=== PATIENT | female | born 2000 | race Caucasian/White ===

== ENCOUNTER 2019-05-14 17:31 | Emergency (ER) | payer SELFPAY ==
[~2019-05-14] VITALS: Ht 175.3 cm; Wt 63.5 kg
--- NOTE | 2019-05-14 17:55 | NUR ---
PT BIBFRIEND. C/O BACK OF HEAD INJ SP FAINTING AT BANK. PT STATES SHE FELL BACK ON HER HEAD. NO WITNESSES WHEN FAINTED. PT STATES BACK OF HER HEAD HURTS, +KO. PT AAOX4, RESPONSIVE, NO NEURO DEFICIT UPON ASSESSMENT. PA AT BEDSIDE FOR EVAL. PT ALSO STATED SHE USUALLY PASSES OUT.
--- NOTE | 2019-05-14 18:20 | NUR ---
URINE COLLECTED AND SENT TO LAB
[2019-05-14 18:30] VITALS: BP 128/84
--- NOTE | 2019-05-14 18:56 | NUR ---
spoke to Radiology for Xray
--- NOTE | 2019-05-14 18:57 | NUR ---
xray at bedside
--- NOTE | 2019-05-14 19:35 | NUR ---
Patient discharged to home in stable condition. Written and verbal after care instructions given. Patient verbalizes understanding of instruction. Pt ambulatory with steady gait. VSS.
== END 2019-05-14 19:35 | disposition home or self-care (01) ==
LOC: ER 17:31
DX: S09.8XXA Other specified injuries of head, initial encounter (principal); R55 Syncope and collapse; R51 Headache; X58.XXXA Exposure to other specified factors, initial encounter; Y93.89 Activity, other specified; Y92.89 Other specified places as the place of occurrence of the external cause; Y99.8 Other external cause status
CPT/HCPCS: 71045-TC; 84703-TC

== ENCOUNTER 2019-09-04 21:07 | Emergency (ER) | payer MEDICAID ==
[~2019-09-04] VITALS: Ht 175.3 cm; Wt 59.0 kg
[2019-09-04] MEDS ORDERED: IV NS 0.9% 1,000 ML BAG IV ONE (22:30)
--- NOTE | 2019-09-04 22:48 | NUR ---
ABD PAIN X 2 DAYS, +FEVER, TOOK IBUPROFEN TODAY. PT AAOX4, VSS. DENIES CP, SOB, DIZZINESS, N/V/D @ THIS TIME. PT SEEN & EVAL'D BY EDELMIRA MUHAMMAD. WILL CONT TO MONITOR.
[2019-09-04 22:49] LABS: BASOPHILS % (AUTO) 0.2 % (0.0-2.0); EOSINOPHILS % (AUTO) 0.1 % (0.0-6.0); HEMATOCRIT 40 % (33-45); HEMOGLOBIN 13.5 g/dL (11.5-14.8); LYMPHOCYTES # (AUTO) 0.7 /CMM (0.8-4.8); LYMPHOCYTES % (AUTO) 7.7 % (20.0-44.0); MEAN CORPUSCULAR HGB CONC 34 g/dl (31.0-36.0); MEAN CORPUSCULAR VOLUME 94 fL (82-100); MONOCYTES # (AUTO) 0.3 /CMM (0.1-1.30); MONOCYTES % (AUTO) 3.9 % (2.0-12.0); NEUTROPHILS # (AUTO) 7.6 /CMM (1.8-8.9); NEUTROPHILS % (AUTO) 88.1 % (43.0-81.0); PLATELET COUNT (AUTO) 206 /CMM (150-450); RED BLOOD CELL COUNT(AUTO) 4.22 MIL/uL (4.0-5.2); WHITE BLOOD COUNT (AUTO) 8.6 K/uL (4.3-11.0)
[2019-09-04 22:51] LABS: APPEARANCE,URINE Cloudy (CLEAR); BILIRUBIN,URINE SMALL (NEGATIVE); BLOOD, URINE Moderate Ery/uL (NEGATIVE); COLOR,URINE Yellow (YELLOW); KETONES,URINE >=160 (NEGATIVE); LEUKOCYTE ESTERASE ,URINE Small (NEGATIVE); NITRITE, URINE Negative (NEGATIVE); PH,URINE 5.5 (5.0-8.0); PROTEIN,URINE 30 mg/dl (NEGATIVE); UGLUCOSE Negative (NEGATIVE)
[2019-09-04 22:58] LABS: CALCIUM, SERUM 9.1 mg/dL (8.5-10.1); CREATININE 0.9 mg/dL (0.6-1.3); POTASSIUM 3.5 mmol/L (3.5-5.1)
[2019-09-04 23:03] LABS: ALBUMIN 4.6 g/dL (3.4-5.0); BILIRUBIN,DIRECT 0.2 mg/dL (0.0-0.2); BILIRUBIN,TOTAL 0.9 mg/dL (0.2-1.0)
[2019-09-04 23:09] LABS: BACTERIA,URINE Few /HPF (None Seen); SQUAMOUS EPITHELIAL CELL,UR Moderate /HPF (None Seen); WBC,URINE 51-80 /HPF (0-3)
[2019-09-05] VITALS: BP 120/65
--- NOTE | 2019-09-05 00:07 | NUR ---
Patient discharged to home in stable condition. Written and verbal after care instructions given. Patient verbalizes understanding of instruction. IV removed. Catheter intact and site benign. Pressure and 4x4 applied to site. No bleeding noted.
== END 2019-09-05 00:08 | disposition home or self-care (01) ==
LOC: ER 21:09
DX: N10 Acute pyelonephritis (principal); B37.3 Candidiasis of vulva and vagina; F41.9 Anxiety disorder, unspecified
CPT/HCPCS: 36415; 74176; 80048; 80076; 81001; 83690; 84703; 85025; 87086; 87210; 99284; J7030; 81000-TC